=== PATIENT | female | born 1970 | race Caucasian/White ===

== ENCOUNTER 2019-08-06 14:39 | Outpatient (CLI) | payer OTHER ==
--- NOTE | 2019-08-06 15:27 | MMO ---
Bilateral MAMMO Bilat Diag [id number]. CLINICAL HISTORY: Patient is 48 years old and is seen for diagnostic exam. The patient has no family history of breast cancer. The patient has no personal history of cancer. VIEWS: The views performed were: bilateral craniocaudal with tomosynthesis; bilateral mediolateral oblique with tomosynthesis; and bilateral mediolateral with tomosynthesis. FILMS COMPARED: The present examination has been compared to prior imaging studies performed at [facility] on 12/13/2016 and 08/06/2019. This study has been interpreted with the assistance of computer-aided detection. MAMMOGRAM FINDINGS: There are scattered fibroglandular densities. There are no suspicious masses, suspicious calcifications, or new areas of architectural distortion. There are no mammographic or sonographic abnormalities in the area of palpable concern. The patient is referred back to her clinician. Negative imaging findings should not preclude biopsy if clinical findings are suspicious. IMPRESSION: THERE ARE NO MAMMOGRAPHIC OR SONOGRAPHIC ABNORMALITIES IN THE AREA OF PALPABLE CONCERN. THE PATIENT IS REFERRED BACK TO HER CLINICIAN. NEGATIVE IMAGING FINDINGS SHOULD NOT PRECLUDE BIOPSY IF CLINICAL FINDINGS ARE SUSPICIOUS. THE RESULTS OF THIS EXAM WERE SENT TO THE PATIENT. ACR BI-RADS Category 1 - Negative MAMMOGRAPHY NOTE: 1. A negative mammogram report should not delay a biopsy if a dominant of clinically suspicious mass is present. 2. Approximately 10% to 15% of breast cancers are not detected by mammography. 3. Adenosis and dense breasts may obscure an underlying neoplasm. Reported by: ERIN VALENCIA MD Electonically Signed: [id number]
--- NOTE | 2019-08-06 15:41 | ULT ---
LIMITED LEFT BREAST ULTRASOUND: 08/06/19 PROVIDED CLINICAL HISTORY: Left breast palpable abnormality. FINDINGS: Limited sonographic interrogation was performed of the left breast in the region of palpable concern. The sonographic appearance of the breast tissue in this region is normal. IMPRESSION: BIRADS 1: Negative Routine annual screening mammography (for women over age 40) Negative imaging findings should not preclude further evaluation of a clinically suspicious area. The patient is referred back to her clinician. POS: OFF
== END 2019-08-06 14:40 | disposition home or self-care (01) ==
LOC: BICMAMMO 14:39
PROVIDERS: ATTEND Family Medicine
DX: N63.20 Unspecified lump in the left breast, unspecified quadrant (principal)
CPT/HCPCS: 77066; G0279